=== PATIENT | female | born 1965 | race Caucasian/White ===

== ENCOUNTER → 2025-03-04 15:29 | Outpatient (REF) | payer BC, SELFPAY | LOC: RAD 15:29 | PROVIDERS: ATTENDING PHYSICIAN Obstetrics & Gynecology; FAMILY PHYSICIAN Family Medicine | DX: R19.00 Intra-abdominal and pelvic swelling, mass and lump, unspecified site (principal) | CPT/HCPCS: 76830; 76856 ==

== ENCOUNTER → 2025-03-19 18:04 | Outpatient (REF) | payer BC, SELFPAY | LOC: MRI 18:04 | PROVIDERS: ATTENDING PHYSICIAN Obstetrics & Gynecology; FAMILY PHYSICIAN Family Medicine | DX: R19.00 Intra-abdominal and pelvic swelling, mass and lump, unspecified site (principal) | CPT/HCPCS: 72197; A9575 ==